=== PATIENT | male | born 2000 | race American Indian/Alaskan Native ===

== ENCOUNTER 2021-04-07 17:01 | Emergency (ER) | payer OTHER, BC ==
[2021-04-07 17:17] VITALS: BP 91/70
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
[2021-04-07] MEDS ORDERED: IBUPROFEN 800 MG TAB PO STA (17:45)
[2021-04-07] MEDS ORDERED: ACETAMINOPHEN 500 MG TAB PO STA (17:45)
== END 2021-04-07 18:27 | disposition home or self-care (01) ==
LOC: ED 17:01
DX: M54.2 Cervicalgia (principal); M54.9 Dorsalgia, unspecified; V49.49XA Driver injured in collision with other motor vehicles in traffic accident, initial encounter; Y93.89 Activity, other specified; Y92.89 Other specified places as the place of occurrence of the external cause; Y99.8 Other external cause status
CPT/HCPCS: 99282